=== PATIENT | female | born 1990 | race Caucasian/White ===

== ENCOUNTER 2025-03-23 15:31 | Outpatient (CLI) | payer BC, SELFPAY | END 2025-03-23 15:32 | disposition home or self-care (01) | LOC: NFLDREF 03-29 07:40 | PROVIDERS: PCP Family Medicine; Referring Provider Family Medicine; Visit Provider Registered Nurse | DX: Z32.01 Encounter for pregnancy test, result positive (principal) | CPT/HCPCS: 84702 ==

== ENCOUNTER 2025-04-05 15:50 | Outpatient (CLI) | payer BC, SELFPAY ==
--- NOTE | 2025-04-05 16:00 | CRLHL7_ITS ---
For Patients: As a result of the Century Cures Act, medical imaging exams and procedure reports are released immediately into your electronic medical record. You may view this report before your referring provider. If you have questions, please contact your health care provider. OBSTETRICAL ULTRASOUND TRANSVAGINAL, 04/05/2025 CLINICAL INDICATION: Dating and viability. LMP: 02/08/2025 EDVIN by LMP: 11/15/2025 Gestational age: 8 weeks 0 days Previous ultrasound: No TECHNIQUE: Real-time singer-scale imaging of the fetus was performed transvaginal. Transvaginal imaging was performed for better visualization of the endometrium and ovaries. FINDINGS: CRL: 1.0 cm, 7 weeks 1 day; EDVIN 11/21/2025 heart rate: 147 BPM Gestational sac: 2.3 cm, appears within normal limits Yolk sac: 2.6 mm, appears within normal limits Right ovary: 3.5 x 2.0 x 2.7 cm Left ovary: 2.4 x 1.4 x 1.4 cm, CL IMPRESSION: Single living intrauterine measuring 7 weeks 1 day with sonographic due date of 11/21/2025. LUIS FERNANDO AVELAR M.D. Diagnostic Radiologist [email or web address] Transcribed: 10:[address]/Dictated by: Luis Fernando Avelar MD @ 04/06/2025 6:51:00 AM (Electronically Signed)
== END 2025-04-05 15:51 | disposition home or self-care (01) ==
LOC: US 15:50
PROVIDERS: PCP Family Medicine; Visit Provider Registered Nurse
DX: Z34.91 Encounter for supervision of normal pregnancy, unspecified, first trimester (principal); Z3A.01 Less than 8 weeks gestation of pregnancy
CPT/HCPCS: 76817; 81513; 83021; 86592; 86703; 86704; 86706; 86762; 86787; 86803; 86850; 86900; 86901; 87086; 87340; 87481; 87491; 87591; 87624; 87661; 88142

== ENCOUNTER 2025-05-19 15:00 | Outpatient (CLI) | payer BC, SELFPAY | END 2025-05-19 15:01 | disposition home or self-care (01) | LOC: NFLDREF 15:00 | PROVIDERS: PCP Family Medicine; Visit Provider Obstetrics & Gynecology | DX: N30.90 Cystitis, unspecified without hematuria (principal); B96.20 Unspecified Escherichia coli [E. coli] as the cause of diseases classified elsewhere | CPT/HCPCS: 87086 ==

== ENCOUNTER 2025-07-14 12:50 | Outpatient (CLI) | payer BC, SELFPAY ==
--- NOTE | 2025-07-14 13:00 | CRLHL7_ITS ---
For Patients: As a result of the Century Cures Act, medical imaging exams and procedure reports are released immediately into your electronic medical record. You may view this report before your referring provider. If you have questions, please contact your health care provider. LMP: 02/09/2024. EDVIN by US: 11/21/2025. GA: 21w, 3d. Single. INDICATION: survey. CERVIX: Visualized. Measurement: 5.1 cm TA. POSITIONING: Multiple positions. AMNIOTIC FLUID: 5.1 cm SDP. PLACENTA: Technique: Transabdominal. PLACENTA POSITION: Anterior. DOPPLER: heart rate: 155 bpm. 3-vessel cord. Placental insertion: Central. Biometry: BPD: 5.3 cm. 22w, 1d, 75.2 percent. HC: 20.3 cm. 22w, 3d, 80.5 percent. AC: 18.5 cm. 23w, 2d, 91.7 percent. FL: 3.6 cm. 21w, 2d, 33.4 percent. FL/AC ratio: 19.2 percent. HC/AC ratio: 1.1. EFW: 497.8 g. Weight: 1 lbs, 2 oz. age by this US: 22w, 1d. EDVIN by this US: 11/16/2025. Percentile by EDVIN: 88.8 percent. SURVEY: Observed Structures Cerebellum: Yes. 2.18 cm; 21w 6d. Cisterna Magna: Yes. 7.7 mm. Nuchal Fold: No. 7.0 mm. Lateral Ventricle: Yes. 6.7 mm. CSP: Yes. Midline Falx: Yes. Choroid Plexus: Yes. Spine: No. Stomach: Yes. Abd Cord Insertion: No. Urinary Bladder: Yes. Kidneys: Yes. Diaphragm: Yes. Nose/lips: Yes. Orbital view: Yes. Profile: Yes. Upper Extremities: Yes. Lower Extremities: Yes. Hands: Yes. Feet: Yes. Four-Chamber Heart: Yes. LVOT: Yes. RVOT: No. 3VV: Yes. 3VTV: Yes. IMPRESSION: 1. Sonographic gestational age 22 weeks 1 day and sonographic due date 11/16/2025. Sonographic age is 5 days ahead of the clinical age. 2. Estimated weight 89th percentile. Abdominal circumference 92nd percentile. 3. Circumvallate placenta. 4. Incomplete visualization of the spine, abdominal cord insertion and RVOT. Short-term follow-up recommended. Attention to the nuchal fold also recommended on short-term follow-up. Remainder of the anatomic survey is normal. Luis Fernando oRman M.D. Diagnostic Radiologist [email or web address] bM/Dictated by: Luis Fernando Roman MD @ 07/14/2025 3:22:00 PM (Electronically Signed)
== END 2025-07-14 12:51 | disposition home or self-care (01) ==
LOC: US 12:50
PROVIDERS: PCP Family Medicine; Visit Provider Advanced Practice Midwife
DX: Z34.92 Encounter for supervision of normal pregnancy, unspecified, second trimester (principal); Z3A.21 21 weeks gestation of pregnancy
CPT/HCPCS: 76805; 81241

== ENCOUNTER 2025-08-11 11:32 | Outpatient (CLI) | payer BC, SELFPAY ==
--- NOTE | 2025-08-11 11:30 | CRLHL7_ITS ---
For Patients: As a result of the Cures Act, medical imaging exams and procedure reports are released immediately into your electronic medical record. You may view this report before your referring provider. If you have questions, please contact your health care provider. OB ULTRASOUND FOLLOW-UP EDVIN by US: 11/21/2025. GA: 25 w, 3 d. INDICATION: Follow-up missing anatomy spine, cord insert, RVOT. Single. Comparison: 07/14/2025. TECHNIQUE: Real time singer scale imaging of the fetus was performed. Transabdominal. CERVIX: Not visualized. POSITIONING: Transverse. AMNIOTIC FLUID: 5.4 cm. SDP (N: greater than 2 x 1 cm) PLACENTA: Technique: Transabdominal. PLACENTA POSITION: Anterior. DOPPLER: heart rate: 138 bpm. IMPRESSION: 1. Incidental placental Finley is present which measures 4.4 x 1.4 x 2.4 cm. 2. Abdominal cord insertion appears normal as does the spine and RVOT. position is transverse, head maternal left. Luis Fernando Roman M.D. Diagnostic Radiologist [email or web address] Transcribed: 8:59 a.m. JR/Dictated by: Luis Fernando Roman MD @ 08/14/2025 10:32:00 PM (Electronically Signed)
== END 2025-08-11 11:33 | disposition home or self-care (01) ==
PROVIDERS: PCP Family Medicine; Visit Provider Obstetrics & Gynecology
DX: O35.08X0 Maternal care for (suspected) central nervous system malformation or damage in fetus, spina bifida, not applicable or unspecified (principal); Z3A.25 25 weeks gestation of pregnancy
CPT/HCPCS: 76816

== ENCOUNTER 2025-08-30 12:53 | Outpatient (CLI) | payer BC, SELFPAY ==
--- NOTE | 2025-08-30 13:00 | CRLHL7_ITS ---
For Patients: As a result of the Century Cures Act, medical imaging exams and procedure reports are released immediately into your electronic medical record. You may view this report before your referring provider. If you have questions, please contact your health care provider. OB ULTRASOUND FOLLOW-UP BODY, TRANSABDOMINAL EDVIN by US: 11/21/2025. GA: 28 w, 1 d. Single. Comparison: us 08/11/2025. INDICATION: Placental blair. TECHNIQUE: Real time singer scale imaging of the fetus was performed. Transabdominal imaging performed. FINDINGS: CERVIX: Not visualized. POSITIONING: Breech. AMNIOTIC FLUID: 6.2 cm SDP (N: greater than 2 x 1 cm) PLACENTA: Technique: Transabdominal. PLACENTA POSITION: Anterior. DOPPLER: heart rate: 130 bpm. BIOMETRY: BPD: 7.6 cm. 30 w, 2 d, 93.8 percent. HC: 28.6 cm. 31 w, 3 d, 96.8 percent. AC: 24.7 cm. 29 w, 0 d, 67.2 percent. FL: 5.2 cm. 27 w, 6 d, 27.0 percent. FL/AC ratio: 21.2 percent. HC/AC ratio: 1.2. EFW: 1304 g. Weight: 2 lbs, 14 oz. age by this US: 29 w, 5 d. EDVIN by this US: 11/10/2025. Percentile by EDVIN: 67.3 percent. IMPRESSION: 1. Sonographic gestational age 29 weeks 5 days and sonographic due date 11/10/2025. Sonographic age is 11 days ahead of the clinical age. 2. Estimated weight 67th percentile. Abdominal circumference 67th percentile. 3. Incidental placental blari is present adjacent to the placental edge which measures 17 x 13 x 25 mm. Luis Fernando Roman M.D. Diagnostic Radiologist [email or web address] SP/Dictated by: Luis Fernando Roman MD @ 08/30/2025 6:37:00 PM (Electronically Signed)
== END 2025-08-30 12:54 | disposition home or self-care (01) ==
LOC: US 12:53
PROVIDERS: PCP Family Medicine; Visit Provider Obstetrics & Gynecology
DX: O43.103 Malformation of placenta, unspecified, third trimester (principal); O36.63X0 Maternal care for excessive fetal growth, third trimester, not applicable or unspecified; Z3A.28 28 weeks gestation of pregnancy
CPT/HCPCS: 76816

== ENCOUNTER 2025-08-30 14:12 | Outpatient (CLI) | payer BC, SELFPAY | END 2025-08-30 14:13 | disposition home or self-care (01) | LOC: NFLDREF 14:13 | PROVIDERS: PCP Family Medicine; Visit Provider Obstetrics & Gynecology | DX: O23.43 Unspecified infection of urinary tract in pregnancy, third trimester (principal); N39.0 Urinary tract infection, site not specified; Z3A.28 28 weeks gestation of pregnancy | CPT/HCPCS: 86592; 87086 ==

== ENCOUNTER 2025-09-09 08:35 | Outpatient (CLI) | payer BC, SELFPAY | END 2025-09-09 08:36 | disposition home or self-care (01) | LOC: NFLDREF 09-14 18:04 | PROVIDERS: PCP Family Medicine; Referring Provider Family Medicine; Visit Provider Obstetrics & Gynecology | DX: R73.09 Other abnormal glucose (principal) | CPT/HCPCS: 82951; 82952 ==

== ENCOUNTER 2025-09-23 13:04 | Outpatient (CLI) | payer BC, SELFPAY ==
--- NOTE | 2025-09-23 13:00 | CRLHL7_ITS ---
For Patients: As a result of the Cures Act, medical imaging exams and procedure reports are released immediately into your electronic medical record. You may view this report before your referring provider. If you have questions, please contact your health care provider. OB ULTRASOUND BIOPHYSICAL PROFILE CLINICAL HISTORY: GDM. TECHNIQUE: Real time singer scale imaging of the fetus was performed. Transabdominal imaging performed. FINDINGS: EDVIN by US: 11/21/2025. GA: 31 weeks 4 days. Gestation: Single. Comparison: , 08/11/2025, 07/14/2025. Cervix: Not visualized. Positioning: Vertex. Amniotic Fluid: 4.5 cm SDP. BIOPHYSICAL PROFILE Gross Body Movements: 2 Tone: 2 Respiratory Activity: 2 Amniotic Fluid SDP: 2 Total Score: 8 Placenta: Technique: TA. Placenta Position: Anterior. Dopplers: Heart Rate: 122 bpm. BIOMETRY: BPD: 8.4 cm, 33 weeks 5 days. 93.1% HC: 30.99 cm, 34 weeks 3 days. 86.3% AC: 29.6 cm, 33 weeks 4 days. 93.5% FL: 5.8 cm, 30 weeks 3 days. 10.8% FL/AC Ratio: 19.6% HC/AC Ratio: 1.0. EFW: 2046 grams, 4 lb 8 oz. Age by this US: 33 weeks 0 days. EDVIN by this US: 11/11/2025. Percentile by EDVIN: 77.7% IMPRESSION: 1. Sonographic gestational age 33 weeks 0 days and sonographic due date 11/11/2025. Sonographic age is 10 days ahead of the clinical age. 2. Estimated weight 78th percentile. Abdominal circumference 94th percentile. 3. Average heart rate 123 beats per minute. 4. Normal biophysical profile 06/03. Luis Fernando Roman M.D. Diagnostic Radiologist [email or web address] Transcribed: 9:58 am DW/Dictated by: Luis Fernando Roman MD @ 09/26/2025 5:56:00 AM (Electronically Signed)
== END 2025-09-23 13:05 | disposition home or self-care (01) ==
LOC: US 13:05
PROVIDERS: PCP Family Medicine; Visit Provider Obstetrics & Gynecology
DX: O24.419 Gestational diabetes mellitus in pregnancy, unspecified control (principal); O36.63X0 Maternal care for excessive fetal growth, third trimester, not applicable or unspecified; Z3A.31 31 weeks gestation of pregnancy
CPT/HCPCS: 76816; 76819

== ENCOUNTER 2025-10-24 10:10 | Outpatient (CLI) | payer BC, SELFPAY ==
--- NOTE | 2025-10-24 10:15 | CRLHL7_ITS ---
For Patients: As a result of the Century Cures Act, medical imaging exams and procedure reports are released immediately into your electronic medical record. You may view this report before your referring provider. If you have questions, please contact your health care provider. OB ULTRASOUND FOLLOW-UP GROWTH TRANSABDOMINAL EDVIN by US: 11/21/2025. GA: 36 w, 0 d. Single. INDICATION: GDM. TECHNIQUE: Real time singer scale imaging of the fetus was performed. Transabdominal imaging performed. CERVIX: Not visualized. POSITIONING: Breech. AMNIOTIC FLUID: 6.3 cm SDP (N: greater than 2 x 1 cm) PLACENTA: Technique: Transabdominal. PLACENTA POSITION: Anterior. DOPPLER: heart rate: 152 bpm. BIOMETRY: BPD: 9.4 cm. 38 w, 2 d, >97 percent. HC: 34.8 cm. 40 w, 2 d, >97 percent. AC: 35.1 cm. 39 w, 0 d, >97 percent. FL: 6.7 cm. 34 w, 4 d, 13 percent. FL/AC ratio: 19.12 percent. HC/AC ratio: 0.99. EFW: 3400 g. Weight: 7 lbs, 8 oz. age by this US: 38 w, 0 d. EDVIN by this US: 11/07/2025. Percentile by EDVIN: 95 percent. IMPRESSION: 1. Sonographic gestational age 38 weeks 0 days and sonographic due date 11/07/2025. Sonographic age is 2 weeks ahead of the clinical age. 2. Estimated weight 95th percentile. Abdominal circumference greater than 97th percentile. 3. BPD and HC both greater than 97th percentile. Luis Fernando Roman M.D. Diagnostic Radiologist [email or web address] SP/Dictated by: Luis Fernando Roman MD @ 10/24/2025 10:44:00 AM (Electronically Signed)
== END 2025-10-24 10:11 | disposition home or self-care (01) ==
LOC: US 10:11
PROVIDERS: PCP Family Medicine; Visit Provider Obstetrics & Gynecology
DX: O24.419 Gestational diabetes mellitus in pregnancy, unspecified control (principal); O36.63X0 Maternal care for excessive fetal growth, third trimester, not applicable or unspecified; Z3A.36 36 weeks gestation of pregnancy
CPT/HCPCS: 76816

== ENCOUNTER 2025-10-24 11:15 | Outpatient (CLI) | payer BC, SELFPAY | END 2025-10-24 11:16 | disposition home or self-care (01) | LOC: NFLDREF 10-30 00:51 | PROVIDERS: PCP Family Medicine; Referring Provider Family Medicine; Visit Provider Obstetrics & Gynecology | DX: Z34.93 Encounter for supervision of normal pregnancy, unspecified, third trimester (principal) | CPT/HCPCS: 87081; 87653 ==